=== PATIENT | male | born 1980 | race Caucasian/White ===

== ENCOUNTER 2024-05-05 16:51 | Inpatient (IN) ==
[2024-05-05] MEDS ORDERED: STAT IV Infusion **Titration per Protocol STA (17:09)
[2024-05-05] MEDS: DOPamine / D5W 400 MG/250 ML BAG IV SCH (17:12)
--- NOTE | 2024-05-05 17:15 | Emergency Department Note ---
Impression & Plan Lyme carditis, Complete heart block ED Provider Note Provider: Flakito Ugarte MD DATE OF SERVICE: 05/05/2024 CHIEF COMPLAINT: Lightheaded, heart block HISTORY OF PRESENT ILLNESS: Patient is a 43-year-old gentleman history of anxiety visiting for the last 2 months with his parents as he is resided in [facility] for the past 2 decades presenting here today referred from urgent care. States on Friday around lunch had an episode lasted maybe 7 to 10 seconds where he froze it may be twitched a little bit and stared ahead. Was feeling lightheaded and dissociated intermittently since then but no syncope. Denies any chest pain or other pain. Denies recent cough or cold. Did several weeks ago visit [place] maybe a bug bite there but not clearly a tick. Denies recent medication changes. No cardiac history reported. Went to urgent care today given ongoing symptoms referred here for extremely low heart rate. Has had several episodes every hour today where he felt lightheaded and near syncopal. PAST MEDICAL HISTORY: As noted above MEDICATIONS: Reviewed medication list includes Wellbutrin, Seroquel, lithium, and SOCIAL HISTORY: Normally resides in [facility] PHYSICAL EXAM: GENERAL: alert and oriented in no acute distress on stretcher Head: normocephalic and atraumatic EYES: No injection, discharge or icterus. EOMI. NECK: Trachea midline. ENT: Mucous membranes pink and moist. LUNGS: Airway patent. No retractions. Breath sounds clear with good air entry bilaterally. HEART: Irregular bradycardic rate and rhythm. No chest wall tenderness ABDOMEN: Soft and non-tender, without guarding or rebound. SKIN: Acyanotic, warm, dry, without rashes EXTREMITIES: Without swelling, tenderness or deformity NEUROLOGICAL: No focal deficits. No aphasia. No facial droop or slurred speech. Ambulatory. EK bpm complete heart block with ventricular junctional escape rhythm without clear acute ST segment elevation CONTINUOUS CARDIAC MONITORING: was ordered and showed a heart rate of 20s to 50s bpm in complete heart block later to wide-complex tachycardia 100s to 180s beats per minute. Patient's laboratory studies and imaging reviewed. Differential includes Infection, dehydration, metabolic abnormality, hypo/hyperglycemia, electrolyte disturbance, anemia, hypoxia, cardiac sources, intracerebral event, toxicologic, neurologic, as well as other pathologies. IMPRESSION/MEDICAL DECISION MAKING: No significant cardiac history. On some psychotropic medications but no recent changes. Appears to be in complete heart block. Patient's pressors acceptable and he appears to be mentating. Pads placed. Started on dopamine infusion. Blood work sent. Slight leukocytosis 12.5 no significant anemia. No severe electrolyte abnormalities with a mildly elevated potassium of 5.2 is noted. Normal lithium. Normal troponin. Patient resting comfortably and since the start of the dopamine drip has not had the lightheadedness feelings occurring. Lyme testing pending to exclude this is etiology for heart block. Did have a 5- second and 6-second period of asystole with a heart block with some symptoms. Later patient broke into a wide-complex tachycardia in the 150s to 180s. Reach out discussed with [facility] cardiology these change in heart rate gradually decreased into the 1 teens but patient without any severe symptoms. Dopamine drip has been held. Heart rate did settle and the patient appears fairly stable. Discussion with Dr. Olivares again likely unmasking an atrial tachycardia as there is now conducting beats. He will evaluate the patient in the ICU and the hospitalist team and ICU were made aware. DIAGNOSIS: Complete heart block, Lyme carditis DISPOSITION: Hospitalist will evaluate Patient was agreeable with this plan. Critical Care I have personally spent 47 minutes of critical care time in the direct management of this patient. This includes bedside care, interpretation of diagnostic studies, and testing, discussion with consultants, patient, and family members, and other required patient management activities. These 47 minutes is in excess of all separately billable procedures. Past Med/Surg History Problem List Hyperkalemia Lyme carditis Complete heart block Psychological disorder Surgical History No pertinent past surgical history Denies history surgery Family History Sister Diabetes Social History Smoking Status: Never smoker Hx Alcohol Use: Yes Alcohol type: beer Alcohol Intake Frequency: 2-4 x/Month Hx Substance Use: No Preferred Language: Pashto Communication Ability: Effective Vest Backer Required: No Beliefs That Will Affect Care: None Current Living Situation: Other Current Living Situation Comment: Lives in [facility] w/ and kids. Visiting here w/ his parents and children Other Information That Helps Us Care for You: No Feels Safe at Home: Yes Safety Concerns: Feels Safe At This Time Assistive Devices: Glasses Allergies Allergies Allergy/AdvReac Type Severity Reaction Status Date / Time Penicillins Allergy Unknown childhood Verified 05/05/24 17:53 reaction Home Meds Home Medications Medication Instructions Recorded Confirmed Dogmatil 25 mg PO QPM 05/05/24 05/05/24 bupropion HCl 150 mg 24 hr tablet, 225 mg PO QPM 05/05/24 05/05/24 extended release (Wellbutrin XL) lithium carbonate 300 mg tablet 300 mg PO BID 05/05/24 05/05/24 ifzsqkkp-xhmewkfz-ckzdd acid 400 1 tab PO DAILY 05/05/24 05/05/24 mcg-vit K 20 mcg-lycop 300 mcg tablet quetiapine 200 mg tablet,extended 300 mg PO QPM 05/05/24 05/05/24 release 24 hr (Seroquel XR) Results & Data (ED) Vital Signs Vital Signs - 24 hr 05/05/24 16:53 05/05/24 17:06 05/05/24 17:06 Temperature 36.8 C Temperature Source Temporal Artery Scan Pulse Rate 39 L Pulse Rate [Apical] 35 L Respiratory Rate 18 15 Respiratory Effort / Characteristics Non-Labored Respiratory Depth Normal Blood Pressure 129/69 Blood Pressure [Right Arm] 125/78 Blood Pressure Mean 89 Blood Pressure Mean [Right Arm] 93 Blood Pressure Position Sitting Pulse Oximetry 100 100 100 Oxygen Delivery Method Room Air Room Air Room Air Sepsis Recent Fever Within 48 Hours No Sepsis New/Unexplained Change in Mental Status N/A Sepsis Action Taken by Nursing No Action Required 05/05/24 17:06 05/05/24 17:07 05/05/24 17:42 Temperature Temperature Source Pulse Rate 40 L Pulse Rate [Apical] 45 L Respiratory Rate 23 Respiratory Effort / Characteristics Non-Labored Spontaneous Respiratory Depth Normal Blood Pressure Blood Pressure [Right Arm] 124/64 Blood Pressure Mean Blood Pressure Mean [Right Arm] 84 Blood Pressure Position Pulse Oximetry 100 100 Oxygen Delivery Method Room Air Room Air Sepsis Recent Fever Within 48 Hours Sepsis New/Unexplained Change in Mental Status Sepsis Action Taken by Nursing 05/05/24 18:07 Temperature Temperature Source Pulse Rate 0 L Pulse Rate [Apical] Respiratory Rate Respiratory Effort / Characteristics Respiratory Depth Blood Pressure Blood Pressure [Right Arm] Blood Pressure Mean Blood Pressure Mean [Right Arm] Blood Pressure Position Pulse Oximetry Oxygen Delivery Method Sepsis Recent Fever Within 48 Hours Sepsis New/Unexplained Change in Mental Status Sepsis Action Taken by Nursing Laboratory Data 05/05/24 17:06 05/05/24 19:39 Lab Results 05/05/24 Range/Units 17:06 WBC 12.57 H (4.8-10.8) K/ul RBC 4.24 L (4.70-6.10) M/uL Hgb 12.5 L (14.0-18.0) g/dl Hct 38.4 L (42.0-52.0) % MCV 90.6 (80.0-100.0) fL MCH 29.5 (25.0-34.0) pg MCHC 32.6 (32.0-36.0) g/dL RDW Std Deviation 41.5 (36.4-46.3) fL RDW Coeff of Staci 12.6 (11.5-14.5) % Plt Count 428 H (130-400) K/uL MPV 10.2 (9.4-12.4) fL Immature Gran % (Auto) 0.4 % Neut % (Auto) 84.3 % Lymph % (Auto) 9.1 % Hart % (Auto) 5.7 % Eos % (Auto) 0.1 % Baso % (Auto) 0.4 % Neut # (Auto) 10.60 H (1.40-6.50) K/uL Lymph # (Auto) 1.14 L (1.20-3.40) K/uL Hart # (Auto) 0.72 H (0.11-0.59) K/uL Eos # (Auto) 0.01 (0.00-0.50) K/uL Baso # (Auto) 0.05 (0.00-0.20) K/uL Immature Gran # (Auto) 0.05 (0.01-0.20) K/uL Sodium 136 (136-145) mmol/L Potassium 5.2 H (3.5-5.1) mmol/L Chloride 102 (98-107) mmol/L Carbon Dioxide 26 (21-32) mmol/L Anion Gap 8 (3-11) BUN 17 (6-23) mg/dl Creatinine 1.13 (0.6-1.4) mg/dl Est Cr Clr Drug Dosing 82.2 ml/min Est GFR ( Amer) 90.5 ml/min Est GFR (Non-Af Amer) 78.1 ml/min BUN/Creatinine Ratio 15.0 (10-20) Glucose 126 H (70-99(Fasting)) mg/dl Calcium 10.2 (8.6-10.3) mg/dl Magnesium 2.2 (1.7-2.4) mg/dl Total Bilirubin 0.4 (0.2-1.0) mg/dl AST 15 (13-39) U/L ALT 13 (7-52) U/L Alkaline Phosphatase 71 (34-104) U/L Troponin I High Sens 4.3 (0-20) pg/ml Total Protein 7.9 (6.0-8.3) gm/dl Albumin 4.4 (3.4-5.0) gm/dl Globulin 3.5 (2.5-4.0) gm/dl Albumin/Globulin Ratio 1.3 (0.9-2) Lipase 9 L (11-82) U/L TSH 4.162 (0.300-4.500) uIu/ml Coram 0.8 (0.6-1.2) mmol/L Lyme Disease Screen Positive H (Negative) Lyme Tier 2 IgG Confirm Positive H (Negative) Lyme Tier 2 IgM Confirm Positive H (Negative) Administered Medications Miscellaneous (Icu Protocol For Hyperglycemia) 1 each N/A ACHS [facility] Stop: 05/07/24 20:59 Last Admin: 05/05/24 21:24 Dose: 1 each Documented By: CLC Discontinued Medications Dopamine HCl/Dextrose (Dopamine / D5w) 400 mg in 250 mls @ 13.2 mls/hr IV .[id number] [facility]; Protocol Stop: 06/04/24 17:14 Last Titration: 05/05/24 18:56 Dose: Infused Documented By: Titration: 05/05/24 18:11 Dose: 7 mcg/kg/min, 18.5 mls/hr Documented By: Admin: 05/05/24 17:12 Dose: 5 mcg/kg/min, 13.2 mls/hr Documented By: JARROD Co-signed By: HUMA Ceftriaxone Sodium (Rocephin) 2,000 mg in 50 mls @ 100 mls/hr IV NOW STA Stop: 05/05/24 18:48 Last Infusion: 05/05/24 18:56 Dose: Infused Documented By: Admin: 05/05/24 18:29 Dose: 100 mls/hr Documented By: JARROD Magnesium Sulfate/Dextrose (Magnesium Sulfate / D5w) 1 gm in 100 mls @ 400 mls/hr IV Q15M YUNIEL Stop: 05/05/24 19:11 Last Admin: 05/05/24 18:57 Dose: Not Given Documented By: SENTHIL Magnesium Sulfate/Dextrose (Magnesium Sulfate 1gm / D5w Bag) Confirm Administered Dose 1 gm IV .STK-MED ONE Stop: 05/05/24 18:47 Last Admin: 05/05/24 18:54 Dose: 1 gm Documented By: JARROD Imaging Data Radiologist's Impression: Chest X-Ray 05/05/24 16:57 XR chest 1V portable CLINICAL HISTORY: Chest pain, nonspecific COMPARISON STUDY: No previous studies for comparison. FINDINGS: Lung volumes are normal. Lungs are clear. There is no pneumothorax or pleural effusion. Cardiac size is normal. Mediastinal contours are normal. There is no evidence for pulmonary edema. IMPRESSION: No acute cardiopulmonary findings. ACT 112: Negative or not required by law. Electronically signed by: Robel Trivedi M.D. 05/05/2024 6:12 PM Discharge Plan Visit Data Chief Complaint: Cardiac Assessment Stated Complaint: CARDIAC ASSESSMENT ED Provider: Flakito Ugarte Discharge Problem: Lyme carditis, Complete heart block Patient Disposition: Admitted As Inpatient Discharge Instructions Interventions: ED Discharge Assessment Last Done: 05/05/24 19:21
[2024-05-05 17:25] LABS: Basophils # (auto) 0.05 K/uL (0.00-0.20); Basophils % (auto) 0.4 %; Eosinophils # (auto) 0.01 K/uL (0.00-0.50); Eosinophils % (auto) 0.1 %; Hematocrit (blood only) 38.4 % (42.0-52.0); Hemoglobin 12.5 g/dl (14.0-18.0); Immature Granulocytes # (auto) 0.05 K/uL (0.01-0.20); Immature Granulocytes % (auto) 0.4 %; Lymphocytes # (auto) 1.14 K/uL (1.20-3.40); Lymphocytes % (auto) 9.1 %; Mean Corpuscular Hemoglobin 29.5 pg (25.0-34.0); Mean Corpuscular Hgb Conc 32.6 g/dL (32.0-36.0); Mean Corpuscular Volume 90.6 fL (80.0-100.0); Mean Platelet Volume 10.2 fL (9.4-12.4); Monocytes # (auto) 0.72 K/uL (0.11-0.59); Monocytes % (auto) 5.7 %; Neutrophils % (auto) 84.3 %; Platelet Count 428 K/uL (130-400); RDW Coefficient of Variation 12.6 % (11.5-14.5); RDW Standard Deviation 41.5 fL (36.4-46.3); Red Blood Count 4.24 M/uL (4.70-6.10); White Blood Count 12.57 K/ul (4.8-10.8)
[2024-05-05 17:38] LABS: Albumin Globulin Ratio 1.3 (0.9-2); Albumin Level 4.4 gm/dl (3.4-5.0); Bilirubin,Total 0.4 mg/dl (0.2-1.0); Calcium 10.2 mg/dl (8.6-10.3); Creatinine Clr Calc Pharmacy 82.2 ml/min; Est GFR (African American) 90.5 ml/min; Est GFR (Non-African American) 78.1 ml/min; Globulin 3.5 gm/dl (2.5-4.0); Magnesium 2.2 mg/dl (1.7-2.4); Potassium 5.2 mmol/L (3.5-5.1); Total Protein 7.9 gm/dl (6.0-8.3)
[2024-05-05 17:44] LABS: Troponin I High Sensitivity 4.3 pg/ml (0-20)
[2024-05-05 17:53] LABS: Thyroid Stimulating Hormone 4.162 uIu/ml (0.300-4.500)
[2024-05-05 18:10] LABS: Lyme Screen Rflx Confirmation Positive (Negative)
--- NOTE | 2024-05-05 18:14 | XRay Report ---
XR chest 1V portable CLINICAL HISTORY: Chest pain, nonspecific COMPARISON STUDY: No previous studies for comparison. FINDINGS: Lung volumes are normal. Lungs are clear. There is no pneumothorax or pleural effusion. Car diac size is normal. Mediastinal contours are normal. There is no evidence for pulmonary edema. IMPRESSION: No acute cardiopulmonary findings. ACT 112: Negative or not required by law. Electronically signed by: Robel Trivedi M.D. 05/05/2024 6:12 PM
[2024-05-05] MEDS: cefTRIAXone SODIUM 2,000 MG/50 ML BAG IV STA (18:29)
[2024-05-05 18:44] LABS: Lyme Ab IgG 2nd Tier Confirm Positive (Negative)
[2024-05-05 18:45] LABS: Lyme Ab IgM 2nd Tier Confirm Positive (Negative)
[2024-05-05] MEDS: MAGNESIUM SULFATE 1GM / D5W BAG IV ONE (18:54)
[2024-05-05] MEDS: MAGNESIUM SULFATE / D5W 1 GM/100 ML BAG IV SCH (18:57)
--- NOTE | 2024-05-05 19:33 | History & Physical Report ---
Date of Service May 05, 2024 Assessment & Plan (1) Complete heart block: (2) Lyme carditis: (3) Hyperkalemia: Plan: Patient is a 43-year-old male with PMH reported anxiety presented to ER with complaint of near syncopal events today. In ER afebrile, P: 39, R: 18, BP 129/69, 100% on room air EKG suggestive complete heart block. In ER pacer pads placed and was started on dopamine drip Initial troponin negative. Magnesium: 2.2, K: 5.2, TSH: 4.1. WBC: 12. CXR: no acute infiltrate ER physician had spoke to cosmetic surgeon cardiology about initial EKG and bradycardia and was suggested ICU admission and continued dopamine. Positive Lyme IgG and IgM. Patient shows picture of RLE "bite" on his cell phone and it appears consistent with erythema migrans rash In ER given Rocephin IV Patient subsequently developed wide-complex tachycardia with rates into the 150s and patient denies CP, SOB, palpations, dizziness, syncope and is sitting up in bed conversing normally. Dopamine discontinued. Given magnesium sulfate 1GM IV ER physician again spoke to cardiology after tachycardia events and cardiology is to come evaluate patient ICU notified by ER physician as well as attending physician Admit ICU Plan to continue IV Rocephin Repeat BMP with K: 4.8 CBC, BMP, magnesium labs in am Echo EKG in AM Suspect symptomatic bradycardia cause of near syncope episodes but if would recur with stable HR's can consider CT head, EEG for completeness (4) Psychological disorder: Plan: Reported history anxiety On sulpiride, bupropion, lithium, quetiapine. Was receiving from [facility] as has been living there for past 20 years [place] level: 0.8 Will plan to hold home meds now with concern for QTc prolongation May need to consider psychiatry consult for assistance with medications if still conduction/rhythm/QT concern Admit ICU Full Code as per discussion with pt Pt was seen and care coordinated with Dr Carter. See addendum I spent a total of 48 minutes reviewing notes, outpatient records, labs, medication, coordinating, documenting and providing care for this patient excluding time spent in the performance of separately billed services. Admission and Anticipated Discharge Date Admission Date: May 05, 2024 History of Present Illness Chief Complaint: Presyncope Primary Care Provider: NO PCP Patient is a 43-year-old male with PMH reported anxiety presented to ER with complaint of near syncopal events. History obtained from patient. Patient reports has been living in [place] past 20 years. He denies any recent changes in his medications. He states has been back in [facility] for past 2 months and last month was hiking in [place]. He reports he had bug bite to right lower leg and describes that he had red oval area that was only mildly pruritic. He did not see any embedded tick. Denies any prior known history tick bite or Lyme disease. He states two days ago he was sitting at table when he had episode of feeling faint and states vision went blurry and saw white light and his mother reported he had some twitching like movements of his arms and seemed to be staring off. It is reported this lasted for 5-10 seconds and resolved. He denies any associated chest pain, SOB and doesn't think he had complete LOC. Reports today has had multiple episodes of near syncope without noted CP, SOB, palpitations. States seen at urgent care today and referred to ER. Denies fever/chills, diaphoresis, N/V/D/C, GAY, other vision changes, neck pain, orthopnea, palpitations, cough, sore throat, rhinorrhea, abdominal pain, paresthesias, extremity weakness, extremity edema, rashes, urinary symptoms. In ER patient found to be bradycardic 30's-40's and EKG with complete heart block and was started on dopamine drip. Allergies Allergy/AdvReac Type Severity Reaction Status Date / Time Penicillins Allergy Unknown childhood Verified 05/05/24 17:53 reaction Home Medications Medication Instructions Recorded Confirmed Type Dogmatil 25 mg PO QPM 05/05/24 05/05/24 History bupropion HCl 150 mg 24 hr tablet, 225 mg PO QPM 05/05/24 05/05/24 History extended release (Wellbutrin XL) lithium carbonate 300 mg tablet 300 mg PO BID 05/05/24 05/05/24 History wadngvtk-bimupooy-jffcx acid 400 1 tab PO DAILY 05/05/24 05/05/24 History mcg-vit K 20 mcg-lycop 300 mcg tablet quetiapine 200 mg tablet,extended 300 mg PO QPM 05/05/24 05/05/24 History release 24 hr (Seroquel XR) Past Med/Surg History Problem List Hyperkalemia Lyme carditis Complete heart block Psychological disorder Surgical History No pertinent past surgical history Denies history surgery Family History Sister Diabetes Social History Smoking Status: Never smoker Hx Alcohol Use: Yes Alcohol type: beer Alcohol Intake Frequency: 2-4 x/Month Hx Substance Use: No Preferred Language: Italian Communication Ability: Effective Jewel Hole Driller Required: No Beliefs That Will Affect Care: None Current Living Situation: Other Current Living Situation Comment: Lives in [facility] w/ and kids. Visiting here w/ his parents and children Other Information That Helps Us Care for You: No Feels Safe at Home: Yes Safety Concerns: Feels Safe At This Time Assistive Devices: Glasses Review of Systems Review of Systems: All systems reviewed & are unremarkable except as noted in HPI & below and All systems reviewed & are unremarkable except as noted in Subjective Physical Exam Physical Exam: PE per Dr Carter Results & Data Results & Data Vital Signs (Past 12 Hours) Vital Signs Temp Pulse Pulse Resp BP BP Pulse Ox 05/05/24 19:21 98 H 20 122/83 100 05/05/24 19:00 106 H 17 109/81 100 05/05/24 18:49 127 H 05/05/24 18:07 0 L 05/05/24 17:42 45 L 23 124/64 100 05/05/24 17:07 40 L 05/05/24 17:06 100 05/05/24 17:06 35 L 15 125/78 100 05/05/24 17:06 100 05/05/24 16:53 36.8 C 39 L 18 129/69 100 O2 Del Method 05/05/24 19:21 Room Air 05/05/24 19:00 Room Air 05/05/24 18:49 05/05/24 18:07 05/05/24 17:42 Room Air 05/05/24 17:07 05/05/24 17:06 Room Air 05/05/24 17:06 Room Air 05/05/24 17:06 Room Air 05/05/24 16:53 Room Air Laboratory Results Short CBC 05/05/24 Range/Units 17:06 WBC 12.57 H (4.8-10.8) K/ul Hgb 12.5 L (14.0-18.0) g/dl Hct 38.4 L (42.0-52.0) % Plt Count 428 H (130-400) K/uL BMP 05/05/24 17:06 Sodium 136 Potassium 5.2 H Chloride 102 Carbon Dioxide 26 BUN 17 Creatinine 1.13 Glucose 126 H Calcium 10.2 Liver Function 05/05/24 Range/Units 17:06 Total Bilirubin 0.4 (0.2-1.0) mg/dl AST 15 (13-39) U/L ALT 13 (7-52) U/L Alkaline Phosphatase 71 (34-104) U/L Albumin 4.4 (3.4-5.0) gm/dl Supervising Physician Co-Signing Physician Notes Patient is a 43-year-old male with history of reported anxiety disorder and no other significant past medical history presents with history of multiple episodes of presyncopal episodes. Patient had an insect bite on his right leg few days ago which caused a bull's-eye-like rash which currently resolved. 2 days ago patient had a syncopal-like episode which was witnessed by his mother. Denies any bowel or bladder incontinence, tongue bite at the time. He denies any loss of consciousness. Patient reports multiple episodes of transient dizziness today which prompted him to come to ED for further evaluation. He denies any chest pain, dyspnea, fever, chills, nausea, vomiting, abdominal pain. Please review HPI for complete details of presentation. While in ED, patient was found to be bradycardic and EKG suggestive of high degree heart block. Patient was started on dopamine drip and patient developed NSVT's. Due to developing NSVT's, dopamine drip is discontinued. He is currently asymptomatic. Cardiology was informed by ED physician. Discussed with ICU team for further evaluation. Patient was started on IV Rocephin for Lyme's carditis. I personally reviewed blood work and imaging studies. Noted mild leukocytosis 12.5, normocytic anemia hemoglobin 12.5, potassium elevated 5.2, glucose elevated 126. Lyme serology positive. Physical Exam: Vitals signs as noted above General Appearance:Thin, moderately nourished,, no apparent distress Head: normocephalic, Atraumatic Eyes: normal inspection, EOMI Neck: supple, Trachea midline Respiratory/Chest: Normal breath sounds, CTA, No accessory muscle use Cardiovascular: S1, S2, No murmur, bradycardia Abdomen/GI:Soft, Non tender, Bowel sounds present Extremities/Musculoskeletal:normal inspection, no edema Neurologic/Psych:AAOX3, grossly no focal neurological deficits Skin: normal color, warm Lyme's carditis Complete heart block secondary to above LBBB Leukocytosis secondary to above Hyperkalemia Normocytic anemia Hyperglycemia Presyncope Started on IV Rocephin Hold antipsychotics given concern for QT prolongation Cardiology on board Monitor in ICU, consulted heel seat filler Trend troponins, check resting echo, repeat EKG in the morning TSH within normal limits. Monitor and replete electrolytes as needed Pacer pads on bedside Will likely need temporary pacemaker Will check complete tick panel If no clinical improvement, will consider CT head, EEG for completeness I personally interviewed and examined at bedside. Patient's care is coordinated with Gissell Turner PA-C. I have reviewed the advanced practitioner's documentation, and I agree with plan of care. Please refer to the documentation above for details of patient's presentation and for discussion of other issues. I spent a total of32 minutes coordinating, documenting, and providing Critical care for this patient excluding time spent in the performance of separately billed services by KEIRY.
--- NOTE | 2024-05-05 19:58 | Critical Care Consultation ---
Date of Consultation May 05, 2024 Assessment & Plan (1) Lyme carditis: Lyme panel positive for Lyme disease. Expect this is because of heart block with no Previous history of cardiac disease. Continue ceftriaxone (2) Complete heart block: Secondary to acute Lyme carditis. No previous cardiac history. Currently responding to IV antibiotics - Cardiology consulted. Appreciate recommendations - Troponins within normal limits -Heart rate currently normal rate and hemodynamically stable. EKG with high degree AV block - TTE pending - Hold dopamine as patient entered V. tach which spontaneously resolved after stopping dopamine drip - If patient were to deteriorate may require transvenous pacing. Monitor in ICU -Continuous monitor on telemetry (3) Psychological disorder: Holding antianxiety medications until rhythm stable History of Present Illness Attending Physician: Jorge Carter MD History of Present Illness Patient is a 43-year-old male with past medical history of anxiety disorder who presented to the emergency department with presyncopal episodes. Patient previously resident of [facility] on, and has back in the [facility] for 2 months. He recently took a trip to [place] and was reported to have a tick bite with erythema around the area. This was approximately 2 weeks ago. In the emergency department patient was noted to have bradycardia into the 40s and was started on dopamine drip. Subsequently patient went into ventricular tachycardia and dopamine was stopped. He remained stable during that time. He is now being transferred to the ICU for further management. Of note, patient did have tick panel positive for Lyme disease and was started on ceftriaxone. Patient awaiting to be evaluated by cardiology. Allergies Allergy/AdvReac Type Severity Reaction Status Date / Time Penicillins Allergy Unknown childhood Verified 05/05/24 17:53 reaction Home Medications Medication Instructions Recorded Confirmed Type Dogmatil 25 mg PO QPM 05/05/24 05/05/24 History bupropion HCl 150 mg 24 hr tablet, 225 mg PO QPM 05/05/24 05/05/24 History extended release (Wellbutrin XL) lithium carbonate 300 mg tablet 300 mg PO BID 05/05/24 05/05/24 History qwbgwhcq-xckisblb-knkse acid 400 1 tab PO DAILY 05/05/24 05/05/24 History mcg-vit K 20 mcg-lycop 300 mcg tablet quetiapine 200 mg tablet,extended 300 mg PO QPM 05/05/24 05/05/24 History release 24 hr (Seroquel XR) Patient History Surgical History No pertinent past surgical history Denies history surgery Family History Sister Diabetes Social History Smoking Status: Never smoker Hx Alcohol Use: Yes Alcohol type: beer Alcohol Intake Frequency: 2-4 x/Month Hx Substance Use: No Preferred Language: Luxembourgish Communication Ability: Effective Chair Mechanic Required: No Beliefs That Will Affect Care: None Current Living Situation: Other Current Living Situation Comment: Lives in [facility] w/ and kids. Visiting here w/ his parents and children Other Information That Helps Us Care for You: No Feels Safe at Home: Yes Safety Concerns: Feels Safe At This Time Assistive Devices: Glasses Review of Systems Review of Systems: Patient reports dizziness during episodes that started 2 days ago in which she nearly loses consciousness, stating he feels foggy. These been happening multiple times a day over the past 2 days. He denies any headache, Fevers, numbness or tingling, changes in gait, weakness. He denies recent illness, sore throat, cough or congestion, shortness of breath, chest pain, palpitations, abdominal pain, nausea vomiting or diarrhea, swelling in hands and feet. Or other symptoms Physical Exam Constitutional: cooperative and comfortable Eyes: PERRL, conjunctivae normal, anicteric sclerae ENMT: external ear and nose normal, oropharynx normal Neck: trachea midline, no thyromegaly Respiratory: normal respiratory effort, lungs clear to auscultation Cardiovascular: RRR, no murmur, no edema Heart Sounds: normal S1 and normal S2 Gastrointestinal (Abdomen): normal bowel sounds, soft, nontender, no hepatosplenomegaly Musculoskeletal: no cyanosis or clubbing, extremities motor strength 5/5 Skin: no rashes, warm and dry Neurologic: PERRL, EOMI, accommodation nl, no face palsy, no dysarthria Psychiatric: A+Ox3, euthymic affect Results & Data Results & Data Vital Signs (Past 12 Hours) Vital Signs Temp Pulse Pulse Resp BP BP Pulse Ox 05/05/24 19:21 98 H 20 122/83 100 05/05/24 19:00 106 H 17 109/81 100 05/05/24 18:49 127 H 05/05/24 18:07 0 L 05/05/24 17:42 45 L 23 124/64 100 05/05/24 17:07 40 L 05/05/24 17:06 100 05/05/24 17:06 35 L 15 125/78 100 05/05/24 17:06 100 05/05/24 16:53 36.8 C 39 L 18 129/69 100 O2 Del Method 05/05/24 19:21 Room Air 05/05/24 19:00 Room Air 05/05/24 18:49 05/05/24 18:07 05/05/24 17:42 Room Air 05/05/24 17:07 05/05/24 17:06 Room Air 05/05/24 17:06 Room Air 05/05/24 17:06 Room Air 05/05/24 16:53 Room Air Coding Level of Care Code 99217 IN/OBS CONSULT LVL 3,45M Diagnoses Lyme carditis A69.29 Complete heart block I44.2 Psychological disorder F99 Time Spent (min) 53
[2024-05-05 20:15] LABS: Troponin I High Sensitivity 6.8 pg/ml (0-20)
[2024-05-05 20:26] LABS: BUN Creatinine Ratio 15.1 (10-20); Calcium 9.8 mg/dl (8.6-10.3); Creatinine Clr Calc Pharmacy 87.5 ml/min; Est GFR (African American) 97.8 ml/min; Est GFR (Non-African American) 84.3 ml/min; Potassium 4.8 mmol/L (3.5-5.1)
--- NOTE | 2024-05-05 20:28 | Cardiology Consultation ---
Date of Consultation May 05, 2024 Assessment & Plan (1) Lyme carditis: (2) Complete heart block: Plan 43-year-old male notes presenting with symptoms of dizziness and lightheadedness with prior rash with bull's-eye/target lesion approximately 2 weeks ago after hiking in [facility] in [place]. High degree AV block with junctional and ventricular escape on presentation Lyme screen positive Acute Lyme carditis with high degree AV block Appears to have responded to IV antibiotics promptly now with marked first- degree AV block Hemodynamically stable Discussed mechanism in detail with patient Family updated Continue antibiotic treatment, echocardiogram in a.m. Daily EKG Agree with holding antianxiety meds until rhythm stabilized Cardiology will follow History of Present Illness Reason for Consultation: Lyme carditis with AV block Requesting Physician: Dr. Carter Attending Physician: Jorge Carter MD History of Present Illness Patient is a 43-year-old male without significant cardiac history presents noting having had 2 to 3 days episodes of intermittent acute lightheadedness lasting 7 to 10 seconds in duration. Episodes recurrent resulting in ER presentation where is found to be in sinus tach versus atrial tachycardia with high degree AV block with junctional and ventricular escape rhythm rate 40 to 45 bpm Blood pressures were adequate and no signs of hypoperfusion Initially treated with IV dopamine for rate augmentation. Treated for Lyme carditis with IV ceftriaxone with improvement in rhythm transient tachycardia with discontinuation of dual Lyme titers positive with patient noting bull's-eye rash approximately 2 weeks ago (picture on phone) Episodes of acute lightheadedness but no syncope or near syncope. No chest pains. No fevers or chills. 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 [employer] Currently no dizziness lightheadedness with adequate blood pressures and perfusion Rhythm now sinus with marked first-degree AV block intermittent second-degree AV block and ventricular bigeminy Allergies Allergy/AdvReac Type Severity Reaction Status Date / Time Penicillins Allergy Unknown childhood Verified 05/05/24 17:53 reaction Home Medications Medication Instructions Recorded Confirmed Type Dogmatil 25 mg PO QPM 05/05/24 05/05/24 History bupropion HCl 150 mg 24 hr tablet, 225 mg PO QPM 05/05/24 05/05/24 History extended release (Wellbutrin XL) lithium carbonate 300 mg tablet 300 mg PO BID 05/05/24 05/05/24 History xwiqyywx-faiwziyl-ewwao acid 400 1 tab PO DAILY 05/05/24 05/05/24 History mcg-vit K 20 mcg-lycop 300 mcg tablet quetiapine 200 mg tablet,extended 300 mg PO QPM 05/05/24 05/05/24 History release 24 hr (Seroquel XR) Patient History Surgical History No pertinent past surgical history Denies history surgery Family History Sister Diabetes Social History Smoking Status: Never smoker Hx Alcohol Use: Yes Alcohol type: beer Alcohol Intake Frequency: 2-4 x/Month Hx Substance Use: No Preferred Language: Turkmen Communication Ability: Effective Cooler Room Worker Required: No Beliefs That Will Affect Care: None Current Living Situation: Other Current Living Situation Comment: Lives in [facility] w/ and kids. Visiting here w/ his parents and children Other Information That Helps Us Care for You: No Feels Safe at Home: Yes Safety Concerns: Feels Safe At This Time Assistive Devices: Glasses Review of Systems Review of Systems: All systems reviewed & are unremarkable except as noted in HPI & below Physical Exam Constitutional: well developed and well nourished Eyes: PERRL, conjunctivae normal, anicteric sclerae ENMT: external ear and nose normal, oropharynx normal Neck: trachea midline, no thyromegaly Respiratory: normal respiratory effort, lungs clear to auscultation Cardiovascular: RRR, no murmur, no edema Vessels: no JVD Extremities: no edema Gastrointestinal (Abdomen): normal bowel sounds, soft, nontender, no hepatosplenomegaly Musculoskeletal: no cyanosis or clubbing, extremities motor strength 5/5 Results & Data Vital Signs (Past 12 Hours) Vital Signs Temp Pulse Pulse Resp BP BP Pulse Ox 05/05/24 19:40 36.9 C 94 H 15 135/82 100 05/05/24 19:21 98 H 20 122/83 100 05/05/24 19:00 106 H 17 109/81 100 05/05/24 18:49 127 H 05/05/24 18:07 0 L 05/05/24 17:42 45 L 23 124/64 100 05/05/24 17:07 40 L 05/05/24 17:06 100 05/05/24 17:06 35 L 15 125/78 100 05/05/24 17:06 100 05/05/24 16:53 36.8 C 39 L 18 129/69 100 O2 Del Method 05/05/24 19:40 Room Air 05/05/24 19:21 Room Air 05/05/24 19:00 Room Air 05/05/24 18:49 05/05/24 18:07 05/05/24 17:42 Room Air 05/05/24 17:07 05/05/24 17:06 Room Air 05/05/24 17:06 Room Air 05/05/24 17:06 Room Air 05/05/24 16:53 Room Air Laboratory Results Laboratory Results - last 24 hr 05/05/24 05/05/24 05/05/24 17:06 19:26 19:39 WBC 12.57 H RBC 4.24 L Hgb 12.5 L Hct 38.4 L MCV 90.6 MCH 29.5 MCHC 32.6 RDW Std Deviation 41.5 RDW Coeff of Staci 12.6 Plt Count 428 H MPV 10.2 Immature Gran % (Auto) 0.4 Neut % (Auto) 84.3 Lymph % (Auto) 9.1 [place] % (Auto) 5.7 Eos % (Auto) 0.1 Baso % (Auto) 0.4 Neut # (Auto) 10.60 H Lymph # (Auto) 1.14 L [place] # (Auto) 0.72 H Eos # (Auto) 0.01 Baso # (Auto) 0.05 Immature Gran # (Auto) 0.05 Sodium 136 134 L Potassium 5.2 H 4.8 Chloride 102 101 Carbon Dioxide 26 23 Anion Gap 8 10 BUN 17 16 Creatinine 1.13 1.06 Est Cr Clr Drug Dosing 82.2 87.5 Est GFR ( Amer) 90.5 97.8 Est GFR (Non-Af Amer) 78.1 84.3 BUN/Creatinine Ratio 15.0 15.1 Glucose 126 H 133 H Calcium 10.2 9.8 Magnesium 2.2 Total Bilirubin 0.4 AST 15 ALT 13 Alkaline Phosphatase 71 Troponin I High Sens 4.3 6.8 Total Protein 7.9 Albumin 4.4 Globulin 3.5 Albumin/Globulin Ratio 1.3 Lipase 9 L TSH 4.162 Nasal Screen MRSA (PCR) Pending [place] 0.8 Lyme Disease Screen Positive H Lyme Tier 2 IgG Confirm Positive H Lyme Tier 2 IgM Confirm Positive H
[2024-05-05] MEDS: ICU Protocol for HYPERglycemia SCH (21:24)
[2024-05-06 05:09] LABS: Basophils # (auto) 0.06 K/uL (0.00-0.20); Basophils % (auto) 0.5 %; Eosinophils # (auto) 0.02 K/uL (0.00-0.50); Eosinophils % (auto) 0.2 %; Hematocrit (blood only) 38.8 % (42.0-52.0); Hemoglobin 12.8 g/dl (14.0-18.0); Immature Granulocytes # (auto) 0.04 K/uL (0.01-0.20); Immature Granulocytes % (auto) 0.3 %; Lymphocytes # (auto) 1.51 K/uL (1.20-3.40); Lymphocytes % (auto) 12.8 %; Mean Corpuscular Hemoglobin 29.2 pg (25.0-34.0); Mean Corpuscular Volume 88.4 fL (80.0-100.0); Mean Platelet Volume 9.9 fL (9.4-12.4); Monocytes # (auto) 0.94 K/uL (0.11-0.59); Neutrophils # (auto) 9.23 K/uL (1.40-6.50); Neutrophils % (auto) 78.2 %; Platelet Count 359 K/uL (130-400); RDW Coefficient of Variation 12.5 % (11.5-14.5); RDW Standard Deviation 40.9 fL (36.4-46.3); Red Blood Count 4.39 M/uL (4.70-6.10)
[2024-05-06 05:19] LABS: BUN Creatinine Ratio 14.9 (10-20); Calcium 9.5 mg/dl (8.6-10.3); Creatinine Clr Calc Pharmacy 91.8 ml/min; Est GFR (African American) 103.6 ml/min; Est GFR (Non-African American) 89.4 ml/min; Magnesium 2.4 mg/dl (1.7-2.4); Potassium 4.4 mmol/L (3.5-5.1)
--- NOTE | 2024-05-06 07:31 | Critical Care Progress Note ---
Date of Service May 06, 2024 Assessment & Plan (1) Lyme carditis: (2) Complete heart block: (3) Psychological disorder: Plan -- Complete heart block Secondary to acute Lyme carditis. No previous cardiac history. Currently responding to IV antibiotics - Troponins within normal limits -Heart rate currently normal rate and hemodynamically stable. EKG with high degree AV block - If patient were to deteriorate may require transvenous pacing -Continuous monitor on telemetry -- Wide-complex tachycardia Appreciated and started on dopamine - Hold dopamine --Lyme disease Lyme panel positive for Lyme disease. Expect this is because of heart block with no Previous history of cardiac disease. Continue ceftriaxone -- Anxiety with mood disorder On lithium, bupropion as well as quetiapine at home He also takes sulpiride which is not available in [place], supra it is usually used for psychosis but patient denies any history of psychosis or schizophrenia --Prophylaxis VTE: None, patient is moving around in the room GI: None Lines: Peripheral Diet: N.p.o. Plan: In/out: +76 mL. Patient did have a tick bite with rash. He did not seek any medical attention. Lyme serology is positive Rocephin has been started. His rhythm is not in complete heart block anymore. But he still has bigeminy and occasional wide-complex tachycardia. He does have significant anxiety. QTc on yesterday's EKG was 355. I would like to resume at least 1 or 2 of his anxiety medication so that he does not going to panic attack. Patient is soft on his blood pressure. I will give him IV fluid Cardiology note reviewed Please note the above document was generated using voice recognition software. It may contain grammatical, syntax or spelling errors.Any formal questions or concerns about the content, text or information contained within the body of this dictation should be directly addressed to the provider for clarification. Admission and Anticipated Discharge Date Admission Date: May 05, 2024 Subjective Patient seen and examined at bedside. No acute distress, no adverse events overnight He is rhythm seems to be in bigeminy. He denies any dizziness, no chest pain, no palpitation He has been getting out of the bed going to the commode without any issues. He does have history of tick bite and rash which was not typical bull's-eye and this was why he did not seek any medical attention. Review of Systems 2 Review of Systems: All systems reviewed & are unremarkable except as noted in Subjective Physical Exam 2 Physical Exam: Constitutional: No acute distress HEENT: EOMI, PERRLA Respiratory system: Good air entry bilaterally, no wheeze, no rhonchi, no crackles CVS: S1-S2 positive, no murmurs or gallops Abdomen: Soft, nontender, nondistended, positive bowel sounds x4 Extremities: +2 pulses bilaterally radialis/ dorsalis pedis, no cyanosis, no edema Neuro: Awake alert oriented x3 Psych: Normal mood and affect G/U: No [place] Skin: no rashes, warm and dry Lymphatic: no cervical or axillary lymphadenopathy Results & Data Results & Data Vital Signs (Past 12 Hours) Vital Signs Temp Pulse Pulse Resp BP BP Pulse Ox 05/06/24 06:00 114/70 05/06/24 06:00 95 H 17 98 05/06/24 05:09 94 H 24 97 05/06/24 05:00 113/71 05/06/24 05:00 113/71 05/06/24 04:54 91 H 18 98 05/06/24 04:12 93 H 23 109/73 96 05/06/24 03:12 95 H 19 95 05/06/24 03:00 115/68 05/06/24 02:45 99 H 23 96 05/06/24 02:03 95 H 14 96 05/06/24 02:00 117/67 05/06/24 01:48 97 H 22 95 05/06/24 01:24 102 H 22 96 05/06/24 01:00 109/70 05/06/24 00:03 97 H 12 97 05/06/24 00:00 99/54 L 05/06/24 00:00 105 H 05/05/24 23:03 96 H 15 95 05/05/24 23:00 111/75 05/05/24 22:03 100 H 13 97 05/05/24 22:00 116/77 05/05/24 21:00 14 114/75 98 05/05/24 21:00 16 98 05/05/24 20:15 116/74 05/05/24 20:15 133 H 14 99 05/05/24 19:42 123 H 17 100 05/05/24 19:40 36.9 C 94 H 15 135/82 100 05/05/24 19:37 96 H 05/05/24 19:33 135/82 O2 Del Method 05/06/24 06:00 05/06/24 06:00 05/06/24 05:09 05/06/24 05:00 05/06/24 05:00 05/06/24 04:54 05/06/24 04:12 05/06/24 03:12 05/06/24 03:00 05/06/24 02:45 05/06/24 02:03 05/06/24 02:00 05/06/24 01:48 05/06/24 01:24 05/06/24 01:00 05/06/24 00:03 05/06/24 00:00 05/06/24 00:00 05/05/24 23:03 05/05/24 23:00 05/05/24 22:03 05/05/24 22:00 05/05/24 21:00 05/05/24 21:00 05/05/24 20:15 05/05/24 20:15 05/05/24 19:42 05/05/24 19:40 Room Air 05/05/24 19:37 05/05/24 19:33 Laboratory Results 05/06/24 04:42 05/06/24 04:42 Coding Level of Care Code 89045 SUB INP/OBS CARE 3/50MIN Diagnoses Lyme carditis A69.29 Complete heart block I44.2 Psychological disorder F99
[2024-05-06 10:06] LABS: Phosphorus 4.2 mg/dl (2.5-4.9)
[2024-05-06 10:20] LABS: iSTAT Creatinine 1.2 mg/dl (0.6-1.3); iSTAT Hemoglobin 12.9 g/dl (14.0-18.0); iSTAT Ionized Calcium 1.25 mmol/l (1.12-1.32); iSTAT Potassium 5.2 mmol/L (3.3-5.0)
--- NOTE | 2024-05-06 11:08 | Cardiology Progress Note ---
Date of Service May 06, 2024 Assessment & Plan (1) Lyme carditis: (2) Complete heart block: Plan 43-year-old male notes presenting with symptoms of dizziness and lightheadedness with prior rash with bull's-eye/target lesion approximately 2 weeks ago after hiking in [place] in [place]. High degree AV block with junctional and ventricular escape on presentation Lyme screen positive Acute Lyme carditis with high degree AV block Appears to have responded to IV antibiotics promptly now with marked first- degree AV block Hemodynamically stable Discussed mechanism in detail with patient Family updated Continue antibiotic treatment, echocardiogram in a.m. Daily EKG Agree with holding antianxiety meds until rhythm stabilized Cardiology will follow 05/06/2024 1. Acute Lyme carditis: Profound AV block no longer present but with significant residual first-degree AV block, left bundle branch block. Responded very briskly to IV antibiotics yesterday Echocardiogram with preserved wall motion and other than conduction changes. No pericardial effusion Hemodynamically stable Plan continue IV ceftriaxone, telemetry. IV antibiotics until significant reduction in DC interval. No indications for temporary pacing. May ambulate in room Admission and Anticipated Discharge Date Admission Date: May 05, 2024 Subjective Patient was seen and examined, chart, medications, telemetry reviewed No physical complaints. No hypotension, shortness of breath, chest pain, no pleuritic discomfort. No joint discomfort Rhythm now sinus with marked first-degree AV block, left bundle branch block and ventricular bigeminy Physical Exam Constitutional: well developed and well nourished Eyes: PERRL, conjunctivae normal, anicteric sclerae ENMT: external ear and nose normal, oropharynx normal Neck: trachea midline, no thyromegaly Respiratory: normal respiratory effort, lungs clear to auscultation Cardiovascular: RRR, no murmur, no edema Vessels: no JVD Extremities: no edema Gastrointestinal (Abdomen): normal bowel sounds, soft, nontender, no hepatosplenomegaly Musculoskeletal: no cyanosis or clubbing, extremities motor strength 5/5 Results & Data Vital Signs (Past 12 Hours) Vital Signs Pulse Resp BP Pulse Ox O2 Del Method 05/06/24 08:30 98 H 22 97 05/06/24 08:27 100 H 10 L 96 05/06/24 08:21 121/79 05/06/24 08:21 121/79 05/06/24 08:21 121/79 05/06/24 08:18 116 H 13 98 05/06/24 08:12 103 H 17 98 05/06/24 08:06 116 H 20 97 05/06/24 08:00 95/57 L 05/06/24 08:00 Room Air 05/06/24 07:51 94 H 19 96 05/06/24 07:48 96 H 27 H 94 05/06/24 07:30 101 H 16 98 05/06/24 07:27 94 H 25 H 98 05/06/24 07:12 97 H 19 95 05/06/24 07:03 122 H 10 L 98 05/06/24 07:00 114/73 05/06/24 06:49 94 H 05/06/24 06:00 114/70 05/06/24 06:00 95 H 17 98 05/06/24 05:09 94 H 24 97 05/06/24 05:00 113/71 05/06/24 05:00 113/71 05/06/24 04:54 91 H 18 98 05/06/24 04:12 93 H 23 109/73 96 05/06/24 03:12 95 H 19 95 05/06/24 03:00 115/68 05/06/24 02:45 99 H 23 96 05/06/24 02:03 95 H 14 96 05/06/24 02:00 117/67 05/06/24 01:48 97 H 22 95 05/06/24 01:24 102 H 22 96 05/06/24 01:00 109/70 05/06/24 00:03 97 H 12 97 05/06/24 00:00 99/54 L 05/06/24 00:00 105 H 05/05/24 23:03 96 H 15 95 05/05/24 23:00 111/75 Laboratory Results Laboratory Results - last 24 hr 05/05/24 05/05/24 05/05/24 17:06 17:11 19:26 WBC 12.57 H RBC 4.24 L Hgb 12.5 L POC Hgb 12.9 L Hct 38.4 L POC Hct 38 L MCV 90.6 MCH 29.5 MCHC 32.6 RDW Std Deviation 41.5 RDW Coeff of Staci 12.6 Plt Count 428 H MPV 10.2 Immature Gran % (Auto) 0.4 Neut % (Auto) 84.3 Lymph % (Auto) 9.1 [place] % (Auto) 5.7 Eos % (Auto) 0.1 Baso % (Auto) 0.4 Neut # (Auto) 10.60 H Lymph # (Auto) 1.14 L [place] # (Auto) 0.72 H Eos # (Auto) 0.01 Baso # (Auto) 0.05 Immature Gran # (Auto) 0.05 POC Sodium 137 Sodium 136 POC Potassium 5.2 H Potassium 5.2 H POC Chloride 103 Chloride 102 Carbon Dioxide 26 POC Total CO2 24 Anion Gap 8 POC Anion Gap 15.0 L POC BUN 16 BUN 17 Creatinine 1.13 POC Creatinine 1.2 Est Cr Clr Drug Dosing 82.2 Est GFR ( Amer) 90.5 Est GFR (Non-Af Amer) 78.1 BUN/Creatinine Ratio 15.0 Glucose 126 H POC Glucose POC Glucose (other) 127 H Calcium 10.2 POC Ioniz Calcium [place] 1.25 Phosphorus Magnesium 2.2 Total Bilirubin 0.4 AST 15 ALT 13 Alkaline Phosphatase 71 Troponin I High Sens 4.3 Total Protein 7.9 Albumin 4.4 Globulin 3.5 Albumin/Globulin Ratio 1.3 Lipase 9 L TSH 4.162 Nasal Screen MRSA (PCR) Negative [place] 0.8 A. phagocytophilum DNA Lyme Disease Screen Positive H Lyme Tier 2 IgG Confirm Positive H Lyme Tier 2 IgM Confirm Positive H Ehrlichia DNA (PCR) Q Fever Phase I IgG Ab Q Fever Phase I IgM Ab Q Fever Phase II IgG Ab Q Fever Phase II IgM Ab [place] IgG Ab [place] IgM Ab Typhus Fever IgG Ab Typhus Fever IgM Ab 05/05/24 05/06/24 05/06/24 19:39 04:42 08:05 WBC 11.80 H RBC 4.39 L Hgb 12.8 L POC Hgb Hct 38.8 L POC Hct MCV 88.4 MCH 29.2 MCHC 33.0 RDW Std Deviation 40.9 RDW Coeff of Staci 12.5 Plt Count 359 MPV 9.9 Immature Gran % (Auto) 0.3 Neut % (Auto) 78.2 Lymph % (Auto) 12.8 [place] % (Auto) 8.0 Eos % (Auto) 0.2 Baso % (Auto) 0.5 Neut # (Auto) 9.23 H Lymph # (Auto) 1.51 [place] # (Auto) 0.94 H Eos # (Auto) 0.02 Baso # (Auto) 0.06 Immature Gran # (Auto) 0.04 POC Sodium Sodium 134 L 136 POC Potassium Potassium 4.8 4.4 POC Chloride Chloride 101 102 Carbon Dioxide 23 27 POC Total CO2 Anion Gap 10 7 POC Anion Gap POC BUN BUN 16 15 Creatinine 1.06 1.01 POC Creatinine Est Cr Clr Drug Dosing 87.5 91.8 Est GFR ( Amer) 97.8 103.6 Est GFR (Non-Af Amer) 84.3 89.4 BUN/Creatinine Ratio 15.1 14.9 Glucose 133 H 92 POC Glucose 90 POC Glucose (other) Calcium 9.8 9.5 POC Ioniz Calcium [place] Phosphorus 4.2 Magnesium 2.4 Total Bilirubin AST ALT Alkaline Phosphatase Troponin I High Sens 6.8 Total Protein Albumin Globulin Albumin/Globulin Ratio Lipase TSH Nasal Screen MRSA (PCR) [place] A. phagocytophilum DNA Pending Lyme Disease Screen Lyme Tier 2 IgG Confirm Lyme Tier 2 IgM Confirm Ehrlichia DNA (PCR) Pending Q Fever Phase I IgG Ab Pending Q Fever Phase I IgM Ab Pending Q Fever Phase II IgG Ab Pending Q Fever Phase II IgM Ab Pending [place]ettsia IgG Ab Pending [place]etts[place] IgM Ab Pending Typhus Fever IgG Ab Pending Typhus Fever IgM Ab Pending
[2024-05-06] MEDS: PLASMA-LYTE A 1,000 ML IV SCH (11:53)
[2024-05-06] MEDS: HEPARIN SOD 5,000 UNIT/0.5 ML VIAL SQ SCH (11:53)
[2024-05-06] MEDS: buPROPion XL 300 MG TABCR PO SCH (11:53)
--- NOTE | 2024-05-06 11:53 | Electrocardiogram Report ---
Test Reason : Blood Pressure : */* mmHG Vent. Rate : 94 BPM Atrial Rate : 93 BPM P-R Int : * ms QRS Dur : 168 ms QT Int : 444 ms P-R-T Axes : * -54 106 degrees QTcB Int : 555 ms Normal sinus rhythm with 1st degree A-V block Left bundle branch block Abnormal ECG When compared with ECG of 06-May-2024 06:28, (unconfirmed) Fusion complexes are no longer Present Confirmed by Abdoul Skinner ([id number]) on 05/06/2024 11:53:09 AM Referred By: REFERRED SELF Confirmed By: Abdoul Skinner
--- NOTE | 2024-05-06 11:55 | Electrocardiogram Report ---
Test Reason : Blood Pressure : */* mmHG Vent. Rate : 99 BPM Atrial Rate : 100 BPM P-R Int : * ms QRS Dur : 168 ms QT Int : 416 ms P-R-T Axes : * -52 105 degrees QTcB Int : 533 ms Normal sinus rhythm with 1st degree A-V block Premature ventricular complexes Left bundle branch block Abnormal ECG When compared with ECG of 05-May-2024 20:12, (unconfirmed) No significant change Confirmed by Abdoul Skinner ([id number]) on 05/06/2024 11:55:09 AM Referred By: REFERRED SELF Confirmed By: Abdoul Skinner
--- NOTE | 2024-05-06 11:59 | Electrocardiogram Report ---
Test Reason : Blood Pressure : */* mmHG Vent. Rate : 33 BPM Atrial Rate : 125 BPM P-R Int : * ms QRS Dur : 154 ms QT Int : 508 ms P-R-T Axes : 68 -64 103 degrees QTcB Int : 375 ms Sinus tachycardia with intermittent complete heart block Ventricular escape beats Left bundle branch block Abnormal ECG No previous ECGs available Confirmed by Abdoul Skinner ([id number]) on 05/06/2024 11:59:29 AM Referred By: REFERRED SELF Confirmed By: Abdoul Skinner
--- NOTE | 2024-05-06 12:02 | Electrocardiogram Report ---
Test Reason : Blood Pressure : */* mmHG Vent. Rate : 106 BPM Atrial Rate : 53 BPM P-R Int : 360 ms QRS Dur : 112 ms QT Int : 268 ms P-R-T Axes : 81 105 -45 degrees QTcB Int : 355 ms Normal sinus rhythm with 1st degree A-V block with Premature ventricular complexes Left bundle branch block Right ventricular hypertrophy with repolarization abnormality Abnormal ECG When compared with ECG of 05-May-2024 16:59, (unconfirmed) Significant changes have occurred Confirmed by Abdoul Skinner ([id number]) on 05/06/2024 12:02:02 PM Referred By: REFERRED SELF Confirmed By: Abdoul Skinner
--- NOTE | 2024-05-06 12:53 | Hospitalist Progress Note ---
Date of Service May 06, 2024 Assessment & Plan (1) Lyme carditis: (2) Complete heart block: (3) Psychological disorder: (4) Hyperkalemia: Plan Continue IV ceftriaxone can consider transitioning to oral antibiotics when NV interval less than 300 Restart bupropion to manage his panic disorder Monitor [facility] daily EKG daily Admission and Anticipated Discharge Date Admission Date: May 05, 2024 Subjective Patient denies any chest pain or shortness of breath. Is anxious about the possibility of a pacemaker Physical Exam Physical Exam: Constitutional: Alert HEENT: Mucous membranes moist. Lungs: Clear to auscultation, decreased, no wheezes rales or rhonchi CV: S1-S2, regular Abdomen: Soft, nontender, nondistended Extremities: No significant edema Neuro: No focal deficits Psych: Cooperative, mild anxiety Results & Data Results & Data Vital Signs (Past 12 Hours) Vital Signs Pulse Resp BP Pulse Ox O2 Del Method 05/06/24 08:30 98 H 22 97 05/06/24 08:27 100 H 10 L 96 05/06/24 08:21 121/79 05/06/24 08:21 121/79 05/06/24 08:21 121/79 05/06/24 08:18 116 H 13 98 05/06/24 08:12 103 H 17 98 05/06/24 08:06 116 H 20 97 05/06/24 08:00 95/57 L 05/06/24 08:00 Room Air 05/06/24 07:51 94 H 19 96 05/06/24 07:48 96 H 27 H 94 05/06/24 07:30 101 H 16 98 05/06/24 07:27 94 H 25 H 98 05/06/24 07:12 97 H 19 95 05/06/24 07:03 122 H 10 L 98 05/06/24 07:00 114/73 05/06/24 06:49 94 H 05/06/24 06:00 114/70 05/06/24 06:00 95 H 17 98 05/06/24 05:09 94 H 24 97 05/06/24 05:00 113/71 05/06/24 05:00 113/71 05/06/24 04:54 91 H 18 98 05/06/24 04:12 93 H 23 109/73 96 05/06/24 03:12 95 H 19 95 05/06/24 03:00 115/68 05/06/24 02:45 99 H 23 96 05/06/24 02:03 95 H 14 96 05/06/24 02:00 117/67 05/06/24 01:48 97 H 22 95 05/06/24 01:24 102 H 22 96 05/06/24 01:00 109/70 Diagnostic Findings Reviewed imaging, laboratory and diagnostic studies. Pertinent findings as below. Echocardiogram shows normal ejection fraction, no pericardial effusion WBCs 11.8 BMP stable Personally reviewed EKG, no evidence of high degree AV block. Left bundle branch block, first-degree AV block
[2024-05-06] MEDS: LORazepam 0.5 MG TAB PO PRN (13:23)
[2024-05-06] MEDS: cefTRIAXone SODIUM 2,000 MG/50 ML BAG IV SCH (16:16)
[2024-05-06] MEDS: DOCUSATE SODIUM 100 MG CAP PO ONE (20:01)
[2024-05-06] MEDS: MELATONIN 3 MG TAB PO PRN (20:03)
[2024-05-07 03:59] LABS: BUN Creatinine Ratio 19.1 (10-20); Creatinine Clr Calc Pharmacy 95.4 ml/min; Est GFR (Non-African American) 97.5 ml/min; Potassium 4.2 mmol/L (3.5-5.1)
--- NOTE | 2024-05-07 07:24 | Critical Care Progress Note ---
Date of Service May 07, 2024 Assessment & Plan (1) Lyme carditis: (2) Complete heart block: (3) Psychological disorder: Plan -- Complete heart block Secondary to acute Lyme carditis. No previous cardiac history. Currently responding to IV antibiotics - Troponins within normal limits -Heart rate currently normal rate and hemodynamically stable. EKG with high degree AV block - If patient were to deteriorate may require transvenous pacing -Continuous monitor on telemetry -- Wide-complex tachycardia Appreciated and started on dopamine - Hold dopamine -- Prolonged QTc 555 on 05/06/2024 --> 429 on 05/07/2024 Avoid QT prolonging medication --Lyme disease Lyme panel positive for Lyme disease. Expect this is because of heart block with no Previous history of cardiac disease. Continue ceftriaxone -- Anxiety with mood disorder On lithium, bupropion as well as quetiapine at home He also takes sulpiride which is not available in [facility], supra it is usually used for psychosis but patient denies any history of psychosis or schizophrenia --Prophylaxis VTE: Heparin subcu GI: None Lines: Peripheral Diet: Regular Plan: In/out: +1770 mL. For anxiety medication continue with bupropion and Ativan as needed [place] as well as quetiapine will along the QTc which I would like to avoid right now If the QTc remains less than 450 tomorrow then I think it is reasonable to resume lithium. Patient hemodynamically stable to be downgraded to a telemetry floor Please note the above document was generated using voice recognition software. It may contain grammatical, syntax or spelling errors.Any formal questions or concerns about the content, text or information contained within the body of this dictation should be directly addressed to the provider for clarification. Admission and Anticipated Discharge Date Admission Date: May 05, 2024 Subjective Patient seen and examined at bedside. No acute distress, no adverse events overnight Doing better when it comes to his anxiety His heart rate is also better controlled compared to yesterday He got better sleep than last night. Denies any chest pain, no dizziness. Does complain of mild nausea which she relates to the smell in the room of some antiseptic. Review of Systems 2 Review of Systems: All systems reviewed & are unremarkable except as noted in Subjective Physical Exam 2 Physical Exam: Constitutional: No acute distress HEENT: EOMI, PERRLA Respiratory system: Good air entry bilaterally, no wheeze, no rhonchi, no crackles CVS: S1-S2 positive, no murmurs or gallops Abdomen: Soft, nontender, nondistended, positive bowel sounds x4 Extremities: +2 pulses bilaterally radialis/ dorsalis pedis, no cyanosis, no edema Neuro: Awake alert oriented x3 Psych: Normal mood and affect G/U: No [place] Skin: no rashes, warm and dry Lymphatic: no cervical or axillary lymphadenopathy Results & Data Results & Data Vital Signs (Past 12 Hours) Vital Signs Temp Pulse Resp BP Pulse Ox 05/07/24 03:10 36.7 C 05/07/24 03:00 79 17 97 05/07/24 02:48 73 20 95 05/07/24 02:21 80 22 96 05/07/24 02:00 109/77 05/07/24 02:00 90 95 05/07/24 01:51 72 21 95 05/07/24 01:48 72 15 95 05/07/24 01:33 73 17 94 05/07/24 01:24 73 19 94 05/07/24 01:12 76 20 95 05/07/24 01:03 77 20 93 05/07/24 00:54 88 14 98 05/07/24 00:45 78 21 94 05/07/24 00:33 82 16 96 05/07/24 00:12 88 26 H 95 05/07/24 00:09 73 27 H 95 05/07/24 00:00 133/70 05/07/24 00:00 133/70 05/06/24 23:46 120/73 05/06/24 23:46 120/73 05/06/24 23:39 97 H 19 97 05/06/24 23:36 120 H 18 96 05/06/24 23:21 76 17 94 05/06/24 23:12 75 17 95 05/06/24 23:09 75 17 95 05/06/24 22:51 91 H 16 97 05/06/24 22:50 36.5 C 05/06/24 22:42 87 20 98 05/06/24 22:33 85 22 97 05/06/24 22:06 90 16 96 05/06/24 21:48 82 22 94 05/06/24 21:21 83 21 95 05/06/24 21:00 89 18 96 05/06/24 20:42 88 19 94 05/06/24 20:36 90 18 97 05/06/24 20:27 88 16 94 05/06/24 20:00 96 H 21 94 05/06/24 19:45 163 H 33 H 95 05/06/24 19:30 51 L 19 96 05/06/24 19:30 36.9 C 05/06/24 19:27 100 H 15 97 Laboratory Results 05/06/24 04:42 05/07/24 02:59 Coding Level of Care Code 13123 SUB INP/OBS CARE 3/50MIN Diagnoses Lyme carditis A69.29 Complete heart block I44.2 Psychological disorder F99
[2024-05-07 08:16] LABS: Magnesium 2.3 mg/dl (1.7-2.4); Phosphorus 3.2 mg/dl (2.5-4.9)
--- NOTE | 2024-05-07 09:06 | Hospitalist Progress Note ---
Date of Service May 07, 2024 Assessment & Plan (1) Lyme carditis: (2) Complete heart block: (3) Psychological disorder: (4) Hyperkalemia: Plan Patient with acute Lyme carditis and high degree AV block, steadily improving NJ interval now less than 300 Continue IV antibiotics for another 24 to 48 hours then can consider transitioning to oral antibiotics Continue to monitor daily EKGs Okay for med telemetry Increase activity Admission and Anticipated Discharge Date Admission Date: May 05, 2024 Subjective Patient denies any acute issues overnight. No chest pain or shortness of breath. Physical Exam Physical Exam: Constitutional: Alert HEENT: Mucous membranes moist. Lungs: Clear to auscultation, decreased, no wheezes rales or rhonchi CV: S1-S2, regular Abdomen: Soft, nontender, nondistended Extremities: No significant edema Neuro: No focal deficits Psych: Cooperative, normal mood, less anxious Results & Data Results & Data Vital Signs (Past 12 Hours) Vital Signs Temp Pulse Pulse Resp BP BP Pulse Ox 05/07/24 08:06 36.8 C 84 20 112/71 97 05/07/24 03:10 36.7 C 05/07/24 03:00 79 17 97 05/07/24 02:48 73 20 95 05/07/24 02:21 80 22 96 05/07/24 02:00 109/77 05/07/24 02:00 90 95 05/07/24 01:51 72 21 95 05/07/24 01:48 72 15 95 05/07/24 01:33 73 17 94 05/07/24 01:24 73 19 94 05/07/24 01:12 76 20 95 05/07/24 01:03 77 20 93 05/07/24 00:54 88 14 98 05/07/24 00:45 78 21 94 05/07/24 00:33 82 16 96 05/07/24 00:12 88 26 H 95 05/07/24 00:09 73 27 H 95 05/07/24 00:00 133/70 05/07/24 00:00 133/70 05/06/24 23:46 120/73 05/06/24 23:46 120/73 05/06/24 23:39 97 H 19 97 05/06/24 23:36 120 H 18 96 05/06/24 23:21 76 17 94 05/06/24 23:12 75 17 95 05/06/24 23:09 75 17 95 05/06/24 22:51 91 H 16 97 05/06/24 22:50 36.5 C 05/06/24 22:42 87 20 98 05/06/24 22:33 85 22 97 05/06/24 22:06 90 16 96 05/06/24 21:48 82 22 94 05/06/24 21:21 83 21 95 O2 Del Method 05/07/24 08:06 Room Air 05/07/24 03:10 05/07/24 03:00 05/07/24 02:48 05/07/24 02:21 05/07/24 02:00 05/07/24 02:00 05/07/24 01:51 05/07/24 01:48 05/07/24 01:33 05/07/24 01:24 05/07/24 01:12 05/07/24 01:03 05/07/24 00:54 05/07/24 00:45 05/07/24 00:33 05/07/24 00:12 05/07/24 00:09 05/07/24 00:00 05/07/24 00:00 05/06/24 23:46 05/06/24 23:46 05/06/24 23:39 05/06/24 23:36 05/06/24 23:21 05/06/24 23:12 05/06/24 23:09 05/06/24 22:51 05/06/24 22:50 05/06/24 22:42 05/06/24 22:33 05/06/24 22:06 05/06/24 21:48 05/06/24 21:21 Diagnostic Findings Reviewed imaging, laboratory and diagnostic studies. Pertinent findings as below. BMP stable, electrolytes within normal range Personally reviewed EKG, sinus rhythm, first-degree AV block, NJ interval 266
--- NOTE | 2024-05-07 12:50 | Cardiology Progress Note ---
Date of Service May 07, 2024 Assessment & Plan (1) Lyme carditis: (2) Complete heart block: Plan 43-year-old male notes presenting with symptoms of dizziness and lightheadedness with prior rash with bull's-eye/target lesion approximately 2 weeks ago after hiking in [place] in [place]. High degree AV block with junctional and ventricular escape on presentation Lyme screen positive Acute Lyme carditis with high degree AV block Appears to have responded to IV antibiotics promptly now with marked first- degree AV block Hemodynamically stable Discussed mechanism in detail with patient Family updated Continue antibiotic treatment, echocardiogram in a.m. Daily EKG Agree with holding antianxiety meds until rhythm stabilized Cardiology will follow 05/06/2024 1. Acute Lyme carditis: Profound AV block no longer present but with significant residual first-degree AV block, left bundle branch block. Responded very briskly to IV antibiotics yesterday Echocardiogram with preserved wall motion and other than conduction changes. No pericardial effusion Hemodynamically stable Plan continue IV ceftriaxone, telemetry. IV antibiotics until significant reduction in AR interval. No indications for temporary pacing. May ambulate in room 05/07/2024 1.Acute Lyme carditis: Responding to antibiotic therapies. Continue IV antibiotics additional 24 hours, EKG in a.m. May discontinue external pacing pads, transition to PCU status increase activity Plan ceftriaxone IV in a.m. likely switch to oral doxycycline for completion of 21-day course Admission and Anticipated Discharge Date Admission Date: May 05, 2024 Subjective Patient seen and examined, chart, medications, telemetry reviewed No acute complaints Telemetry demonstrates no further bradycardia arrhythmias or pauses EKG with shortening AR interval, intermittent left bundle branch block Review of Systems Review of Systems: All systems reviewed & are unremarkable except as noted in Subjective Physical Exam Constitutional: well developed and well nourished Eyes: PERRL, conjunctivae normal, anicteric sclerae ENMT: external ear and nose normal, oropharynx normal Neck: trachea midline, no thyromegaly Respiratory: normal respiratory effort, lungs clear to auscultation Cardiovascular: RRR, no murmur, no edema Vessels: no JVD Extremities: no edema Gastrointestinal (Abdomen): normal bowel sounds, soft, nontender, no hepatosplenomegaly Musculoskeletal: no cyanosis or clubbing, extremities motor strength 5/5 Results & Data Vital Signs (Past 12 Hours) Vital Signs Temp Pulse Pulse Resp BP BP Pulse Ox 05/07/24 08:06 36.8 C 84 20 112/71 97 05/07/24 06:51 87 05/07/24 03:10 36.7 C 05/07/24 03:00 79 17 97 05/07/24 02:48 73 20 95 05/07/24 02:21 80 22 96 05/07/24 02:00 109/77 05/07/24 02:00 90 95 05/07/24 01:51 72 21 95 05/07/24 01:48 72 15 95 05/07/24 01:33 73 17 94 05/07/24 01:24 73 19 94 05/07/24 01:12 76 20 95 05/07/24 01:03 77 20 93 05/07/24 00:54 88 14 98 O2 Del Method 05/07/24 08:06 Room Air 05/07/24 06:51 05/07/24 03:10 05/07/24 03:00 05/07/24 02:48 05/07/24 02:21 05/07/24 02:00 05/07/24 02:00 05/07/24 01:51 05/07/24 01:48 05/07/24 01:33 05/07/24 01:24 05/07/24 01:12 05/07/24 01:03 05/07/24 00:54 Laboratory Results Laboratory Results - last 24 hr 05/06/24 05/07/24 05/07/24 16:10 02:59 08:21 Sodium 138 Potassium 4.2 Chloride 105 Carbon Dioxide 26 Anion Gap 7 BUN 18 Creatinine 0.94 Est Cr Clr Drug Dosing 95.4 Est GFR ( Amer) 113.0 Est GFR (Non-Af Amer) 97.5 BUN/Creatinine Ratio 19.1 Glucose 105 H POC Glucose 117 H 106 H Calcium 9.0 Phosphorus 3.2 D Magnesium 2.3 ECG Additional Comments: EKG sinus rhythm, AR interval 266 with intermittent left bundle branch block, ventricular ectopy
--- NOTE | 2024-05-07 13:57 | Electrocardiogram Report ---
Test Reason : Blood Pressure : */* mmHG Vent. Rate : 81 BPM Atrial Rate : 81 BPM P-R Int : 266 ms QRS Dur : 106 ms QT Int : 370 ms P-R-T Axes : 48 73 14 degrees QTcB Int : 429 ms Sinus rhythm with 1st degree A-V block with Fusion complexes RSR' or QR pattern in V1 suggests right ventricular conduction delay Left bundle branch block Abnormal ECG When compared with ECG of 06-May-2024 07:36, No significant change Confirmed by Abdoul Skinner ([id number]) on 05/07/2024 1:57:26 PM Referred By: REFERRED SELF Confirmed By: Abdoul Skinner
[2024-05-07] MEDS: ONDANSETRON 4 MG OD TAB PO PRN (19:44)
[2024-05-07] MEDS: DOCUSATE SODIUM 100 MG CAP PO PRN (19:44)
[2024-05-07] MEDS: LITHIUM CARBONATE 300 MG TAB PO SCH (19:49)
[2024-05-08 07:25] VITALS: RESP 18
--- NOTE | 2024-05-08 10:38 | Cardiology Progress Note ---
Date of Service May 08, 2024 Assessment & Plan (1) Lyme carditis: (2) Complete heart block: Plan 43-year-old male notes presenting with symptoms of dizziness and lightheadedness with prior rash with bull's-eye/target lesion approximately 2 weeks ago after [place] in [place] in [place]. High degree AV block with junctional and ventricular escape on presentation Lyme screen positive Acute Lyme carditis with high degree AV block Appears to have responded to IV antibiotics promptly now with marked first- degree AV block Hemodynamically stable Discussed mechanism in detail with patient Family updated Continue antibiotic treatment, echocardiogram in a.m. Daily EKG Agree with holding antianxiety meds until rhythm stabilized Cardiology will follow 05/06/2024 1. Acute Lyme carditis: Profound AV block no longer present but with significant residual first-degree AV block, left bundle branch block. Responded very briskly to IV antibiotics yesterday Echocardiogram with preserved wall motion and other than conduction changes. No pericardial effusion Hemodynamically stable Plan continue IV ceftriaxone, telemetry. IV antibiotics until significant reduction in MA interval. No indications for temporary pacing. May ambulate in room 05/07/2024 1.Acute Lyme carditis: Responding to antibiotic therapies. Continue IV antibiotics additional 24 hours, EKG in a.m. May discontinue external pacing pads, transition to PCU status increase activity Plan ceftriaxone IV in a.m. likely switch to oral doxycycline for completion of 21-day course 05/08/2024 Clinically improved 1. Acute Lyme carditis: MA interval now 232, conduction abnormality substantially improved. Stable for discharge after ceftriaxone dose today with plan 21-day course of antibiotic therapy, doxycycline on discharge Follow-up EKG Leana Govea 1 week, appointment 3 weeks Admission and Anticipated Discharge Date Admission Date: May 05, 2024 Subjective Patient seen and personally examined. No acute complaints or discomfort. No arrhythmias on telemetry Prior bundle branch block and conduction abnormalities resolved, MA shorter Review of Systems Review of Systems: All systems reviewed & are unremarkable except as noted in Subjective Physical Exam Constitutional: well developed and well nourished Eyes: PERRL, conjunctivae normal, anicteric sclerae ENMT: external ear and nose normal, oropharynx normal Neck: trachea midline, no thyromegaly Respiratory: normal respiratory effort, lungs clear to auscultation Cardiovascular: RRR, no murmur, no edema Vessels: no JVD Extremities: no edema Gastrointestinal (Abdomen): normal bowel sounds, soft, nontender, no hepatosplenomegaly Musculoskeletal: no cyanosis or clubbing, extremities motor strength 5/5 Results & Data Vital Signs (Past 12 Hours) Vital Signs Temp Pulse Pulse Resp BP Pulse Ox O2 Del Method 05/08/24 08:00 71 05/08/24 07:23 36.6 C 85 18 108/70 96 Room Air 05/08/24 03:37 36.5 C 82 16 103/66 94 Room Air 05/07/24 23:48 75 05/07/24 23:33 36.5 C 91 H 16 104/66 96 Room Air Laboratory Results Laboratory Results - last 24 hr 05/08/24 06:22 [place] Pending
[2024-05-08 11:23] VITALS: BP 109/70; TEMP 99; O2SAT 95
--- NOTE | 2024-05-08 11:29 | Discharge Summary ---
Discharge Summary Date of Service May 08, 2024 Principal Dx & Hospital Course #1 = Principal Diagnosis (1) Lyme carditis: (2) Complete heart block: Due to Lyme carditis (3) Psychological disorder: (4) Hyperkalemia: Resolved Plan Patient presented to the emergency room after syncopal event. In the emergency room noted to be in complete heart block. Patient's history was consistent with a tick bite with a erythema migrans rash and he tested positive for Lyme. Patient was admitted to the ICU for telemetry monitoring. Cardiology consultation was obtained. He was immediately treated with IV Rocephin. Cardiology evaluate the patient did not feel he needed immediate pacemaker and continue to monitor on telemetry. Patient rapidly responded to IV Rocephin. By the following day his heart block significantly improved. His QRS and PA interval started to narrow. Patient steadily improved throughout his hospitalization continued on the IV Rocephin. His hyperkalemia resolved with some hydration. His other vital signs stabilized. Transferred out of the ICU. Echocardiogram was performed showed normal ejection fraction and no significant pericardial effusion. As his heart blocks continue to improve he was restarted on his home medications. His activity was increased. On the day of discharge patient's EKG showed normal sinus rhythm. PA interval was significantly less than 300. His QRS is narrow to. He can be transitioned off of IV antibiotics to oral doxycycline to complete a 21-day course of antibiotics for Lyme carditis and be discharged home to outpatient care and follow-up with cardiology and his outpatient providers. Notes For Next Care Provider Follow-up with cardiology Complete 21-day course of antibiotics Medication Changes From Visit Doxycycline added to treat Lyme carditis Admission HPI Per Admitting Provider Patient is a 43-year-old male with PMH reported anxiety presented to ER with complaint of near syncopal events. History obtained from patient. Patient reports has been living in [facility] past 20 years. He denies any recent changes in his medications. He states has been back in [facility] for past 2 months and last month was hiking in [place]. He reports he had bug bite to right lower leg and describes that he had red oval area that was only mildly pruritic. He did not see any embedded tick. Denies any prior known history tick bite or Lyme disease. He states two days ago he was sitting at table when he had episode of feeling faint and states vision went blurry and saw white light and his mother reported he had some twitching like movements of his arms and seemed to be staring off. It is reported this lasted for 5-10 seconds and resolved. He denies any associated chest pain, SOB and doesn't think he had complete LOC. Reports today has had multiple episodes of near syncope without noted CP, SOB, palpitations. States seen at urgent care today and referred to ER. Denies fever/chills, diaphoresis, N/V/D/C, GAY, other vision changes, neck pain, orthopnea, palpitations, cough, sore throat, rhinorrhea, abdominal pain, paresthesias, extremity weakness, extremity edema, rashes, urinary symptoms. In ER patient found to be bradycardic 30's-40's and EKG with complete heart block and was started on dopamine drip. Admission Exam Per Admitting Provider See H&P Discharge Exam Constitutional: Alert HEENT: Mucous membranes moist. Lungs: Clear to auscultation, decreased, no wheezes rales or rhonchi CV: S1-S2, regular Abdomen: Soft, nontender, nondistended Extremities: No significant edema Neuro: No focal deficits Psych: Cooperative, normal mood Updated Medication List Medication Instructions Recorded Confirmed Type Dogmatil 25 mg PO QPM 05/05/24 05/05/24 History bupropion HCl 150 mg 24 hr tablet, 225 mg PO QPM 05/05/24 05/05/24 History extended release (Wellbutrin XL) lithium carbonate 300 mg tablet 300 mg PO BID 05/05/24 05/05/24 History gvgihzqv-lefmceuc-mdqve acid 400 1 tab PO DAILY 05/05/24 05/05/24 History mcg-vit K 20 mcg-lycop 300 mcg tablet quetiapine 200 mg tablet,extended 300 mg PO QPM 05/05/24 05/05/24 History release 24 hr (Seroquel XR) doxycycline hyclate 100 mg capsule 100 mg PO BID 21 days #42 caps 05/08/24 Rx Hospital Stay Data Consultations 05/05/24 18:54 ED Decision to Admit Stat 05/05/24 19:37 Consult [employer] Routine 05/05/24 19:51 Consult Cardiology Routine Diagnostic Imagining Performed Reviewed imaging, laboratory and diagnostic studies. Pertinent findings as below. Chest x-ray no acute abnormalities Echocardiogram ejection fraction 55 to 60%, no valvular disease, no pericardial effusion EKG personally reviewed, sinus rhythm with a PA interval of 232 ms, QTc 430 ms, incomplete bundle branch block narrow QRS complex Electrolytes stabilized Pending Results Patient Have Any Pending Studies at Discharge: No Discharge Instructions Given to Patient (Per Discharging Provider) He may resume your usual activities You may return to work Complete all antibiotics May resume your usual home medications Total Time Total Time Spent Total Time Spent (In Minutes): 32
[2024-05-08 13:54] VITALS: PULSE 94
--- NOTE | 2024-05-11 05:19 | Electrocardiogram Report ---
Test Reason : Blood Pressure : */* mmHG Vent. Rate : 94 BPM Atrial Rate : 94 BPM P-R Int : 232 ms QRS Dur : 106 ms QT Int : 344 ms P-R-T Axes : 62 99 -37 degrees QTcB Int : 430 ms Sinus rhythm with 1st degree A-V block Possible Left atrial enlargement Rightward axis Incomplete right bundle branch block Abnormal ECG When compared with ECG of 07-May-2024 07:25, Left bundle branch block are no longer Present T wave inversion more evident in Inferior leads Confirmed by Josue Morgan ([id number]) on 05/11/2024 5:19:16 AM Referred By: REFERRED SELF Confirmed By: Josue Morgan
== END 2024-05-08 14:08 | disposition home or self-care (01) | DRG 868 ==
LOC: ED 16:51 → 1E 18:47 → SUATTDRO 18:47 → 1E 19:21 → 2N 05-07 17:14